=== PATIENT | female | born 1970 | race Caucasian/White ===

== ENCOUNTER → 2025-05-12 10:07 | Outpatient (REF) | payer BC, SELFPAY ==
--- NOTE | 2025-05-12 10:10 | PN.DIAED02 ---
Referral
DSME Class Series Code: [id number]
Referred For: Diabetes Self-Management Training, Medical Nutrition Therapy, Self-Blood Glucose Monitoring, Long-Term Complication Instruction, Accute Complication Instruction, Continuous Glucose Monitoring, Medication management, Insulin
Instruction, Care Coordination, Disease Management
PHI Release Authorization Form Signed: Yes
Patient Problems:
Current Active Problems
Problem Status Onset
Diabetes mellitus with hyperglycemia, with long-term current use of insulin Acute ~05/05/25
Demographic
(1) Diabetes mellitus with hyperglycemia, with long-term current use of insulin
Status: Acute
Qualifiers:
Diabetes mellitus type: type 2 Qualified Code(s): E11.65 - Type 2 diabetes mellitus with hyperglycemia; Z79.4 - skilled nursing (current) use of insulin
Code(s): E11.65 - Type 2 diabetes mellitus with hyperglycemia; Z79.4 - ad terminal makeup operator (current) use of insulin
Patient's primary language-: Uzbek
Education: College degree
Occupation: Retired
Hours Worked/Week: 20-40
Shift: Day
- Social
Primary Support Person: Self & spouse
Primary Care Takers: Self
Living Arrangements: Self & spouse
- Learning Methods
Preferred Method: Reading, Hands-on demonstration
Barriers to Learning: Hearing
Glycemic Control
- Blood Glucose Monitoring Assessment
Date: 05/05/25 (FBG 270 Venous)
Blood glucose monitoring at home: Yes
Monitor Brands: Freestyle
Frequency: >4x per day
Time: fasting, before breakfast, before lunch, before dinner, bedtime
Patient uses Alternate Site Testing: No
- Ketone Monitoring Assessment
Patient monitoring ketone: No
- Hyperglycemia Assessment
Experiences Hyperglycemia: No
- Hypoglycemia Assessment
Patient carries glucose source: Unknown
- Blood Glucose Monitoring Results
Source: Other (CGM- Sana 3 Plus)
- Hemoglobin A1c
Date: 05/05/25
A1C Percentage (%): 11
Medical History of Diabetes
Previous Diabetes Education: No
Previous visit with Dietitian: No
Complications/Comorbidity/Specialist: Diabetic Neuropathy, Hypertension, Hyperlipidemia
Current Home Medication
- Insulin Management
Patient has access to glucagon: Yes
- Insulin Types
Novolog
Insulin Injection Site: Abdomen
Administration Type: FlexPen
Needle Gauge: 30
Connection Type: Screw on
Lantus
Insulin Injection Site: Thigh
Administration Type: FlexPen
Needle Gauge: 30
Connection Type: Screw on
Measures
- Anthropometrics
Height: 5 ft 4 in
Actual Weight: 76.657 kg
- Blood Pressure / Pulse
Blood pressure: 148/94
Pulse: 84
- Diabetes Management
Medical Management for Diabetes: Complete physical exam (05/09/2025), Dental exam (03/13/2025)
Self-Care
- Tobacco Usage
Do you now, or have you ever smoked?: Never smoked
- Alcohol & Drugs Usage
Drinks Alcohol: Yes
Amount/day: 1-2 drinks per day
Uses Recreational Drugs: No
- Meals & Dining
Meals & Dining: Patient skips meals: Yes, Food Intolerance / Allergy: No, Cultural / Taoist Dietary Needs: No
Primary Food Green Chain Operator: Self & Spouse
Primary Oyster Farmer: Self
Dining Out Frequency: Occasionally
- Physical Activity
Physical Limitation: No
Patient participates in physical Activity: Yes
Activity Types: Stretching (Pilates )
Duration: > 50 minutes
Frequency: 3-5x per week
Intensity: Easy
- Self Foot-Care
Foot Problems: Neuropathy
Performs Self Foot-Exam: Yes
Frequency: Daily
- Patient-Self Assessment
Diabetes Knowledge: Fair
Feelings About Diabetes: Adaptation
General Health: Good
Importance of Health: Extremely
Stress Level: Low
Diabetes Interferes With:: Nothing
Barriers to Diabetes Management: Nothing
Depression Survey Score: 0
- Diabetes Identification
Carries Diabetes Identification: No
Diabetes Identification Information Provided: No
Care Plan
- Education Needs
Patient Education Needs: Diabetes disease process, Chronic complications, Acute complications, Medication, Monitoring, Physical activity, Psychosocial Adjustment, Nutritional management, Goal setting & problem solving
Recommended Diabetes Training Program based on assessment: Outpatient Diabetes Education Program
- Plan of Care
Plan of Care:
05/12/2025: Diabetes Education
Vitals: BP:148/94, HR 84, O2 sat 99%, Wt today was 169 lbs
Met with today for registration of DSME classes and wearable CGM sensor placement, calibration and patient training.
Pt was recently diagnosed with T2DM via routine lab work done on 05/05/2025. A1C was 11.0% with a FBG of 270 venous. Discussed ideal A1C goal of <7% based on her age
Pt states that she did a trail period with a CGM sensor but had to take it off due to alarm fatigue, where her blood sugars were consistently over 200.
Discussed and trained pt on use of [employer] sensor. Assisted patient to create an account in the [employer].
Reviewed process of sensor application and identified appropriate areas of sensor placement.
Pt identified LUE back of the arm as preferred site for insertion. Prepped skin with alcohol and sensor was placed.
Reviewed use of mobile device to display glucose readings, alerts and pre-set Low or High Glucose levels for hypoglycemia or hyperglycemia awareness.
Sensor was linked to his smart phone [employer] mandi and warm-up phase was initiated.
Discussed trend arrows that show whether glucose values are rising or falling and how fast, explained predictive alerts and how they alert the patient before reaching pre-set Low or High Glucose Alert levels.
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
Patient states that she knows what her biggest problem is, and what has caused her diabetes, states she drinks a lot of alcohol specifically wine, 2-4 glasses/day. She exercises 5days/week and has always been physically active.
Discussed options for diabetes management including insulin therapy use and pt was agreeable to initiation of insulin
Will start NovoLog 5 units AC and Lantus 15 units @ HS, Rx sent to [facility]. Pt was strongly encouraged to car pick up driver the metformin and start taking it teja.
Had a lengthy discussion with pt regarding alcohol cessation, diet, and medication adherence for optimal glucose control.
Also discussed acute and chronic micro/macrovascular diabetes related complications in setting of uncontrolled diabetes, pt reports she thinks she has Diabetic neuropathy due to numbness in her toes.
Pt was registered for DSME class that starts in June at noon.
She will contact the diabetes office should she need any further assistance with her CGM
Will cont to follow patient and review CGM reports weekly until glucose is at target goal of 110-140.
--- NOTE | 2025-05-12 11:13 | PN.DIAED04 ---
Education Record
- Education Record
Class Attended: Other (Pre-Registration for DSME classes and Individual visit for CGM and Insulin instructions.)
Instructor: Nurse Practitioner (PABLO Kilgore)
Class Length (mins): 60
Pre-Program Knowledge: Needs review / Assistance
Pre-Test Score (%): 73
Goals
- Goal 1
Being Active: Exercise more often
Healthy Eating: Follow meal plan
Monitoring: Follow monitoring schedule
Goals To Be Evaluated: Exercise more often. Follow meal plan. Follow monitoring times
== END ==
LOC: DES 10:07
PROVIDERS: ATTENDING PHYSICIAN Family Medicine
DX: E11.59 Type 2 diabetes mellitus with other circulatory complications (principal)
CPT/HCPCS: 99078